=== PATIENT | male | born 1965 | race Caucasian/White ===

== ENCOUNTER 2021-08-05 16:55 | Inpatient (IN) | payer BC ==
[~2021-08-05] VITALS: Ht 325.1 cm; Wt 61.2 kg
[2021-08-05 18:30] LABS: CHLORIDE 108 mEq/L (98-107)
[2021-08-05 18:37] LABS: BASOPHILS % 0.2 % (0.0-2.0); EOSINOPHILS % 0.5 % (0.0-5.0); HEMATOCRIT. 49.5 % (42.0-52.0); HEMOGLOBIN. 17.2 g/dL (14.0-18.0); LYMPHOCYTES % 8.2 % (20.0-50.0); MEAN CORPUSCULAR HEMOGLOBIN 30.8 pg (28.0-32.0); MEAN CORPUSCULAR VOLUME 88.2 fL (80.0-94.0); MEAN PLATELET VOLUME 9.6 fl (7.4-10.4); MONOCYTES % 7.3 % (2.0-8.0); NEUTROPHILS % 83.8 % (40.0-76.0); PLATELET 185 x1000/uL (130-400); RED BLOOD CELL COUNT 5.61 mill/uL (4.7-6.1); RED CELL DISTRIBUTION WIDTH 12.9 % (11.6-14.6)
[2021-08-05] MEDS ORDERED: PREDNISONE 20MG TABLET PO NR (18:54)
[2021-08-05] MEDS ORDERED: IPRATROPIUM BROMIDE (0.02%) 0.5MG/2.5ML NEB HHN NR (18:54)
[2021-08-05] MEDS ORDERED: ALBUTEROL (0.083%) 2.5MG/3ML NEB HHN NR (18:54)
[2021-08-05] MEDS ORDERED: CYCLOBENZAPRINE 10MG TABLET PO ONE (19:30)
[2021-08-05] MEDS ORDERED: KETOROLAC 60MG/2ML VIAL IM ONE (19:30)
[2021-08-05] MEDS ORDERED: LIDOCAINE 5% PATCH TOP SCH (19:30)
[2021-08-05] MEDS ORDERED: LIDO700A30 TP (19:52)
[2021-08-05] MEDS ORDERED: NAPR500T7 MT (19:52)
[2021-08-05] MEDS ORDERED: CYCL10TA7 MT (19:52)
[2021-08-05 21:21] LABS: CLARITY URINE CLEAR (CLEAR); COLOR URINE YELLOW (YELLOW); KETONES URINE NEGATIVE (NEGATIVE); LEUKOCYTE ESTERASE URINE NEGATIVE (NEGATIVE); NITRITE URINE NEGATIVE (NEGATIVE); OCCULT BLOOD URINE 2+ (NEGATIVE); PH URINE 6.5 (4.5-8.0); PROTEIN URINE NEGATIVE (NEGATIVE); SPECIFIC GRAVITY URINE 1.013 (1.005-1.030); UROBILINOGEN URINE 0.2 E.U./dL (0.2-1.0)
[2021-08-05] MEDS ORDERED: HYDROCODONE/ACETAMINOPHEN 5/325MG TABLET PO NR (22:45)
[2021-08-05] MEDS ORDERED: ONDANSETRON 4MG ODT PO NR (22:45)
[2021-08-05] MEDS ORDERED: SODIUM CHLORIDE 0.9% 1,000 ML IV ONE (23:00)
[2021-08-06] MEDS: MORPHINE SULFATE 2 MG/ML CPJ (NOT FOR IM USE) IV PRN ×3 (06:38→21:35)
[2021-08-06] MEDS ORDERED: NALOXONE HCL 0.4MG/ML VIAL IV PRN (06:45)
[2021-08-06] MEDS ORDERED: CEFTRIAXONE 1 G PREMIX 50 ML IV SCH ×2 (08:45→10:20)
[2021-08-06] MEDS ORDERED: CEFTRIAXONE 1,000 MG in DEXTROSE 5% WATER 50 ML IV SCH ×3 (10:00→12:30)
[2021-08-06] MEDS: KETOROLAC 30MG/ML VIAL IV SCH ×3 (11:12→21:30)
[2021-08-06 12:00] VITALS: BP 126/90
[2021-08-06] MEDS ORDERED: DIPHENHYDRAMINE 50MG/ML VIAL IV PRN (13:00)
[2021-08-06] MEDS: SODIUM CHLORIDE 0.45% 1,000 ML IV SCH ×2 (13:00→23:10)
[2021-08-06] MEDS ORDERED: MAGNESIUM/ALUMINUM HYDROXIDE/SIMETHICONE 30ML UDC PO PRN (13:00)
[2021-08-06] MEDS ORDERED: LORAZEPAM 0.5MG TABLET PO PRN (13:00)
[2021-08-06] MEDS ORDERED: HYDROCODONE/ACETAMINOPHEN 5/325MG TABLET PO PRN (13:00)
[2021-08-06] MEDS ORDERED: GUAIFENESIN 200MG/10ML SUGAR FREE UDC PO PRN (13:00)
[2021-08-06] MEDS ORDERED: IPRATROPIUM/ALBUTEROL 0.5-3(2.5)MG/3ML NEB NEB PRN (13:00)
[2021-08-06] MEDS ORDERED: NA PHOS,M-B/NA PHOS,DI-BA ENEMA 118ML PR PRN (13:00)
[2021-08-06] MEDS ORDERED: DOCUSATE SODIUM 100MG CAPSULE PO PRN (13:00)
[2021-08-06] MEDS ORDERED: ACETAMINOPHEN 650MG SUPP PR PRN (13:00)
[2021-08-06] MEDS ORDERED: CLONIDINE 0.1MG TABLET PO PRN (13:00)
[2021-08-06] MEDS ORDERED: ACETAMINOPHEN 325MG TABLET PO PRN (13:00)
[2021-08-06 14:03] VITALS: BP 140/95
[2021-08-06] MEDS: ONDANSETRON HCL 4MG/2ML INJ IV PRN ×2 (15:52→21:50)
[2021-08-06 16:00] VITALS: BP 114/66
[2021-08-06] MEDS ORDERED: TOPI100T37 PO (17:21)
[2021-08-06] MEDS ORDERED: PARO10TA74 MT (17:26)
[2021-08-06] MEDS ORDERED: AMLO2.5T2 MT (17:32)
[2021-08-06] MEDS ORDERED: PAROXETINE HCL 10MG TABLET PO PRN (17:45)
[2021-08-06] MEDS ORDERED: TOPIRAMATE 100MG TABLET PO PRN ×2 (17:45→18:15)
[2021-08-06 17:56] LABS: BASOPHILS % 0.4 % (0.0-2.0); EOSINOPHILS % 1.7 % (0.0-5.0); HEMATOCRIT. 44.5 % (42.0-52.0); HEMOGLOBIN. 15.6 g/dL (14.0-18.0); LYMPHOCYTES % 23.8 % (20.0-50.0); MEAN CORPUSCULAR HEMOGLOBIN 30.7 pg (28.0-32.0); MEAN CORPUSCULAR VOLUME 87.6 fL (80.0-94.0); MEAN PLATELET VOLUME 9.3 fl (7.4-10.4); MONOCYTES % 13.1 % (2.0-8.0); PLATELET 156 x1000/uL (130-400); RED BLOOD CELL COUNT 5.09 mill/uL (4.7-6.1); RED CELL DISTRIBUTION WIDTH 12.9 % (11.6-14.6)
[2021-08-06] MEDS ORDERED: AMLODIPINE 2.5MG TABLET PO SCH ×2 (18:00→21:00)
[2021-08-06 18:26] LABS: CHLORIDE 108 mEq/L (98-107)
[2021-08-06 20:00] VITALS: BP 130/82
[2021-08-06] MEDS ORDERED: PAROXETINE HCL 10MG TABLET PO SCH (21:00)
[2021-08-06] MEDS ORDERED: FAMOTIDINE 20MG TABLET PO SCH (21:00)
[2021-08-07] VITALS: BP 112/64
[2021-08-07] MEDS: KETOROLAC 30MG/ML VIAL IV SCH ×2 (03:30→09:30)
[2021-08-07 04:00] VITALS: BP 125/74
[2021-08-07 07:17] LABS: BASOPHILS % 0.3 % (0.0-2.0); EOSINOPHILS % 2.1 % (0.0-5.0); HEMATOCRIT. 45.2 % (42.0-52.0); HEMOGLOBIN. 15.8 g/dL (14.0-18.0); MEAN CORPUSCULAR HEMOGLOBIN 30.6 pg (28.0-32.0); MEAN CORPUSCULAR VOLUME 87.5 fL (80.0-94.0); MEAN PLATELET VOLUME 9.4 fl (7.4-10.4); MONOCYTES % 12.4 % (2.0-8.0); NEUTROPHILS % 57.2 % (40.0-76.0); PLATELET 143 x1000/uL (130-400); RED BLOOD CELL COUNT 5.17 mill/uL (4.7-6.1); RED CELL DISTRIBUTION WIDTH 12.8 % (11.6-14.6)
[2021-08-07 07:36] LABS: CHLORIDE 113 mEq/L (98-107)
[2021-08-07] MEDS ORDERED: MIDAZOLAM HCL 2 MG/2 ML VIAL ONE (07:37)
[2021-08-07] MEDS ORDERED: FENTANYL CITRATE/PF 50MCG/ML 2ML VIAL ONE (07:37)
[2021-08-07] MEDS ORDERED: PROPOFOL 200MG/20ML VIAL IV ONE (07:37)
[2021-08-07 07:51] LABS: LDL CHOLESTEROL 92 mg/dL (5-100)
[2021-08-07] MEDS ORDERED: ONDANSETRON HCL 4MG/2ML INJ ONE (07:51)
[2021-08-07] MEDS ORDERED: METOCLOPRAMIDE HCL 10MG/2ML VIAL ONE (07:51)
[2021-08-07] MEDS ORDERED: DEXAMETHASONE 4MG/ML 1ML VIAL ONE (07:51)
[2021-08-07] MEDS ORDERED: LIDOCAINE HCL 1% 10 MG/ML 10ML VIAL ONE (07:51)
[2021-08-07 07:54] LABS: HDL CHOLESTEROL 38 mg/dL (40-59)
[2021-08-07] MEDS ORDERED: EPHEDRINE SULFATE 50MG/ML VIAL ONE (08:19)
[2021-08-07] MEDS: SODIUM CHLORIDE 0.45% 1,000 ML IV SCH (09:00)
[2021-08-07] MEDS ORDERED: CIPR500T5 MT (12:16)
[2021-08-07] MEDS ORDERED: TRAM50TA94 MT (12:16)
[2021-08-07 12:54] VITALS: BP 126/64
== END 2021-08-07 13:20 | disposition home or self-care (01) | DRG 690 ==
LOC: ER 16:55 → MICUSO 08-06 03:24 → 6EST 08-06 10:49
PROVIDERS: ADMIT Internal Medicine; ATTEND Internal Medicine
DX: N13.6 Pyonephrosis (principal); E86.0 Dehydration; F32.A Depression, unspecified; G43.909 Migraine, unspecified, not intractable, without status migrainosus; Z20.822 Contact with and (suspected) exposure to COVID-19; I10 Essential (primary) hypertension; M54.10 Radiculopathy, site unspecified; Z87.442 Personal history of urinary calculi; Z88.8 Allergy status to other drugs, medicaments and biological substances; Z90.49 Acquired absence of other specified parts of digestive tract
CPT/HCPCS: 36415; 71045; 74176; 80048; 80053; 80061; 81003; 83880; 84443; 84484; 85025; 87426; 93005; 99285; J0696; J1100; J1885; J2250; J2270; J2405; J2704; J2765; J3010; J3490; J7030; J7060; Q0162